=== PATIENT | male | born 1950 | race Caucasian/White ===

== ENCOUNTER → 2024-01-27 06:48 | Outpatient (REF) | payer MEDICARE, OTHER, SELFPAY ==
[2024-01-27 07:41] LABS: % Eosinophils 2.5 % (0-6); % Immature Granulocytes 0.3 % (0-0.5); % Lymphocytes 32.3 % (20.5-51.1); % Monocytes 10.5 % (1.7-9.3); % Neutrophils 53.4 % (42.2-75.2); Absolute Basophils 0.1 10^3/uL (0-0.2); Absolute Eosinophils 0.2 10^3/uL (0-0.7); Absolute Lymphocytes 2.2 10^3/uL (1.2-3.4); Absolute Monocytes 0.7 10^3/uL (0.1-0.6); Absolute Neutrophils 3.7 10^3/uL (1.4-6.5); Hematocrit 44.5 % (39.0-52.0); Hemoglobin 15.1 g/dL (13.0-18.0); Mean Corp Hgb Conc. 33.9 g/dL (33.0-37.0); Mean Corpuscular Hgb 31.1 pg (27.0-31.0); Mean Corpuscular Volume 91.6 fL (80.0-94.0); Mean Platelet Volume 9.9 fL (7.4-10.4); Nucleated Red Blood Cells % 0 % (-); Platelet Count 252 10^3/uL (130-400); Red Blood Cell Count 4.86 10^6/uL (4.70-6.10); Red Cell Dist. Width 11.9 % (11.5-14.5); White Blood Cell Count 6.9 10^3/uL (4.8-10.8)
[2024-01-27 10:40] LABS: ALT (SGPT) 28 U/L (0-50); AST (SGOT) 27 U/L (17-59); Albumin 4.2 g/dl (3.5-5.0); Alkaline Phosphatase 67 U/L (38-126); Blood Urea Nitrogen 30 mg/dl (9-20); Calcium 9.1 mg/dl (8.4-10.2); Carbon Dioxide 26 mmol/L (22-30); Chloride 105 mmol/L (98-107); Glucose 100 mg/dl (70-99); HDL Cholesterol 51 mg/dl; LDL Cholesterol, Calculated 109 mg/dl; Potassium 4.4 mmol/L (3.5-5.1); Sodium 138 mmol/L (135-145); Total Bilirubin 0.8 mg/dl (0.2-1.3); Total Cholesterol 182 mg/dl (50-199); Total Protein 6.7 g/dl (6.3-8.2); Triglyceride 114 mg/dl (10-149); Very Low Density Lipoprotein 22 mg/dl (0-30); eGFR > 60.00
[2024-01-27 10:52] LABS: PSA, Total - Screen 3.36 ng/ml (0.0-4.0)
== END ==
LOC: REG 06:48
PROVIDERS: ATTENDING PHYSICIAN Nurse Practitioner Adult Health
DX: Z00.00 Encounter for general adult medical examination without abnormal findings (principal); E78.5 Hyperlipidemia, unspecified; Z12.5 Encounter for screening for malignant neoplasm of prostate
CPT/HCPCS: 36415; 80053; 80061; 85025; G0103

== ENCOUNTER → 2024-04-28 07:52 | Outpatient (REF) | payer MEDICARE, OTHER, SELFPAY ==
[2024-04-28 08:58] LABS: % Basophils 0.8 % (0-2); % Eosinophils 2.8 % (0-6); % Immature Granulocytes 0.3 % (0-0.5); % Lymphocytes 25.4 % (20.5-51.1); % Monocytes 11.5 % (1.7-9.3); % Neutrophils 59.2 % (42.2-75.2); Absolute Basophils 0.1 10^3/uL (0-0.2); Absolute Eosinophils 0.2 10^3/uL (0-0.7); Absolute Lymphocytes 1.6 10^3/uL (1.2-3.4); Absolute Monocytes 0.7 10^3/uL (0.1-0.6); Absolute Neutrophils 3.8 10^3/uL (1.4-6.5); Hematocrit 43.6 % (39.0-52.0); Hemoglobin 14.5 g/dL (13.0-18.0); Mean Corp Hgb Conc. 33.3 g/dL (33.0-37.0); Mean Corpuscular Hgb 30.5 pg (27.0-31.0); Mean Corpuscular Volume 91.8 fL (80.0-94.0); Mean Platelet Volume 9.9 fL (7.4-10.4); Nucleated Red Blood Cells % 0 % (-); Platelet Count 236 10^3/uL (130-400); Red Blood Cell Count 4.75 10^6/uL (4.70-6.10); Red Cell Dist. Width 12.2 % (11.5-14.5); White Blood Cell Count 6.4 10^3/uL (4.8-10.8)
[2024-04-28 10:40] LABS: Blood Urea Nitrogen 29 mg/dl (9-20); Calcium 9.2 mg/dl (8.4-10.2); Carbon Dioxide 27 mmol/L (22-30); Chloride 104 mmol/L (98-107); Glucose 105 mg/dl (70-99); Potassium 4.5 mmol/L (3.5-5.1); Sodium 139 mmol/L (135-145); eGFR > 60.00
== END ==
LOC: REG 07:52
PROVIDERS: ATTENDING PHYSICIAN Specialist; FAMILY PHYSICIAN Nurse Practitioner Adult Health
DX: Z01.818 Encounter for other preprocedural examination (principal)
CPT/HCPCS: 36415; 80048; 85025

== ENCOUNTER → 2025-02-06 07:28 | Outpatient (REF) | payer MEDICARE, OTHER, SELFPAY ==
[2025-02-06 07:57] LABS: % Basophils 0.9 % (0-2); % Eosinophils 2.9 % (0-6); % Immature Granulocytes 0.2 % (0-0.5); % Lymphocytes 32.5 % (20.5-51.1); % Monocytes 9.3 % (1.7-9.3); % Neutrophils 54.2 % (42.2-75.2); Absolute Basophils 0.1 10^3/uL (0-0.2); Absolute Eosinophils 0.2 10^3/uL (0-0.7); Absolute Lymphocytes 1.8 10^3/uL (1.2-3.4); Absolute Monocytes 0.5 10^3/uL (0.1-0.6); Hemoglobin 14.9 g/dL (13.0-18.0); Mean Corp Hgb Conc. 33.9 g/dL (33.0-37.0); Mean Corpuscular Hgb 30.6 pg (27.0-31.0); Mean Corpuscular Volume 90.3 fL (80.0-94.0); Mean Platelet Volume 9.5 fL (7.4-10.4); Nucleated Red Blood Cells % 0 % (-); Platelet Count 225 10^3/uL (130-400); Red Blood Cell Count 4.87 10^6/uL (4.70-6.10); Red Cell Dist. Width 12.5 % (11.5-14.5); White Blood Cell Count 5.5 10^3/uL (4.8-10.8)
[2025-02-06 08:24] LABS: ALT (SGPT) 30 U/L (0-50); AST (SGOT) 24 U/L (17-59); Albumin 4.1 g/dl (3.5-5.0); Alkaline Phosphatase 63 U/L (38-126); Blood Urea Nitrogen 28 mg/dl (9-20); Calcium 9.5 mg/dl (8.4-10.2); Carbon Dioxide 28 mmol/L (22-30); Chloride 105 mmol/L (98-107); Glucose 113 mg/dl (70-99); HDL Cholesterol 52 mg/dl; LDL Cholesterol, Calculated 133 mg/dl; Potassium 4.4 mmol/L (3.5-5.1); Sodium 139 mmol/L (135-145); Total Bilirubin 0.7 mg/dl (0.2-1.3); Total Cholesterol 206 mg/dl (50-199); Total Protein 6.5 g/dl (6.3-8.2); Triglyceride 107 mg/dl (10-149); Very Low Density Lipoprotein 21 mg/dl (0-30); eGFR > 60.00
[2025-02-07 15:07] LABS: PSA Total 2.9 ng/mL (0.0-4.0)
== END ==
LOC: REG 07:28
PROVIDERS: ATTENDING PHYSICIAN Nurse Practitioner Adult Health
DX: Z00.00 Encounter for general adult medical examination without abnormal findings (principal); E78.5 Hyperlipidemia, unspecified; R73.9 Hyperglycemia, unspecified; Z68.29 Body mass index [BMI] 29.0-29.9, adult; Z12.5 Encounter for screening for malignant neoplasm of prostate; R26.2 Difficulty in walking, not elsewhere classified
CPT/HCPCS: 36415; 80053; 80061; 84153; 84154; 85025

== ENCOUNTER → 2025-08-16 08:10 | Outpatient (REF) | payer MEDICARE, OTHER, SELFPAY ==
[2025-08-16 09:40] LABS: ALT (SGPT) 25 U/L (0-50); AST (SGOT) 23 U/L (17-59); Albumin 4.4 g/dl (3.5-5.0); Alkaline Phosphatase 66 U/L (38-126); Blood Urea Nitrogen 25 mg/dl (9-20); Calcium 9.7 mg/dl (8.4-10.2); Carbon Dioxide 28 mmol/L (22-30); Chloride 103 mmol/L (98-107); Glucose 102 mg/dl (70-99); HDL Cholesterol 50 mg/dl; LDL Cholesterol, Calculated 120 mg/dl; Potassium 4.9 mmol/L (3.5-5.1); Sodium 137 mmol/L (135-145); Total Protein 6.8 g/dl (6.3-8.2); Very Low Density Lipoprotein 18 mg/dl (0-30); eGFR > 60.00
[2025-08-16 10:09] LABS: Glycohemoglobin (HgbA1c) 6.1 % (4.0-5.6)
== END ==
LOC: REG 08:10
PROVIDERS: ATTENDING PHYSICIAN Nurse Practitioner Adult Health
DX: R73.01 Impaired fasting glucose (principal); E78.00 Pure hypercholesterolemia, unspecified
CPT/HCPCS: 36415; 80053; 80061; 83036

== ENCOUNTER → 2025-10-24 07:51 | Outpatient (REF) | payer MEDICARE, OTHER, SELFPAY ==
[2025-10-24 08:41] LABS: Hematocrit 46.4 % (39.0-52.0); Hemoglobin 14.8 g/dL (13.0-18.0); Mean Corp Hgb Conc. 31.9 g/dL (33.0-37.0); Mean Corpuscular Volume 92.1 fL (80.0-94.0); Nucleated Red Blood Cells % 0 % (-); Platelet Count 228 10^3/uL (130-400); Red Cell Dist. Width 12.4 % (11.5-14.5)
[2025-10-24 09:02] LABS: Blood Urea Nitrogen 25 mg/dl (9-20); Calcium 9.2 mg/dl (8.4-10.2); Carbon Dioxide 31 mmol/L (22-30); Chloride 103 mmol/L (98-107); Glucose 106 mg/dl (70-99); Potassium 4.4 mmol/L (3.5-5.1); Sodium 137 mmol/L (135-145); eGFR > 60.00
== END ==
LOC: REG 07:51
PROVIDERS: ATTENDING PHYSICIAN Specialist; FAMILY PHYSICIAN Nurse Practitioner Adult Health
DX: Z01.818 Encounter for other preprocedural examination (principal)
CPT/HCPCS: 36415; 80048; 85025

== ENCOUNTER 2025-11-18 16:33 | Emergency (ER) | payer MEDICARE, OTHER, SELFPAY ==
[2025-11-18 16:38] VITALS: BP 134/95
--- NOTE | 2025-11-18 18:20 | ED.GENMED ---
History of Present Illness
<Sharon Maguire PA-C - Last Filed: 11/21/25 15:58>
General
Chief Complaint: Bowel Problem
Source: patient and spouse
Exam Limitations: none
Time Seen by Provider: 11/18/25 17:42
History of Present Illness
History of Present Illness:
74yoM with a history of a recent right hip replacement on 11/14/[address] Santos presenting with his for evaluation of constipation. Patient has not had a bowel movement in 5 days. He has tried laxative including milk of magnesia, prune
juice, and an enema without any relief. He reports generalized abdominal pain and distention. He has not passed any flatus so far today. He is not eating much and feels very dehydrated. He has some nausea but denies any vomiting. He also
endorses decreased urine output. He has not taken any opioids since the day of surgery. Only prior abdominal surgery was an appendectomy.
Past History
<Sharon Maguire PA-C - Last Filed: 11/21/25 15:58>
Social History
Tobacco: Non-smoker
Employment: Employed
Phy Exam
<Sharon Maguire PA-C - Last Filed: 11/21/25 15:58>
General Physical Exam
General Presentation: no apparent distress
General Skin: warm and dry
General Habitus: normal and elderly
General Mental: alert
ENT Exam
ENT Exam: normocephalic
Pulmonary Exam
Pulmonary Exam: no respiratory distress
Gastrointestinal Exam
Gastrointestinal Exam: soft, distended and other (Abdomen distended with generalized tenderness. No rebound or guarding.)
Neurological Exam
Neurological Exam: alert
Mini Coma Scale
Eye Opening: Spontaneous
Verbal Response: Oriented
Motor Response: Obeys Commands
GCS Total Score: 15
Musculoskeletal Exam
Musculoskeletal Exam: other (R hip postoperative wound dressing in place)
Skin Exam
Skin Exam: normal color and warm/dry
Psychiatric Exam
Psychiatric Exam: normal mood/affect
<James Hatfield Jr., PA-C - Last Filed: 11/19/25 22:06>
Mini Coma Scale
GCS Total Score: 15
Course
<Sharon Maguire PA-C - Last Filed: 11/21/25 15:58>
Orders/Labs/Results
Orders:
Orders
11/18/25 18:19
CT Abd/pelvis W Iv Cont Urgent
Comment:
Reason For Exam: constipation, abd distention
11/18/25 18:21
Bladder Scan- Treatment ONCE
0.9% Sodium Chloride 1000 ml [Nss] 1,000 ml IV BOLUS
11/18/25 18:50
HYDROmorphone [Dilaudid] 0.5 mg IV NOW STA
11/18/25 18:51
Complete Blood Count/With Diff Urgent
Comprehensive Metabolic Panel Urgent
Lipase Urgent
11/18/25 19:14
Terrazas Placement- Treatment ONCE
Reason for insertion: Acute Retention
11/18/25 19:45
Urinalysis Reflex To Culture Urgent
Date Specimen was Collected: 11/18/25
Time Specimen was Collected: 19:40
Urine Microscopic Reflex Cult Urgent
11/18/25 21:28
Enema- Treatment ONCE
Type: Milk of Molasses
Abnormal Lab Results
11/18/25 11/18/25
18:51 19:45
WBC 18.4 H 10^3/uL
(4.8-10.8)
RBC 4.60 L 10^6/uL
(4.70-6.10)
MCHC 32.6 L g/dL
(33.0-37.0)
Abs Immat Gran (auto) 0.2 H 10^3/uL
(0-0.05)
Absolute Neuts (auto) 14.4 H 10^3/uL
(1.4-6.5)
Absolute Monos (auto) 1.8 H 10^3/uL
(0.1-0.6)
Immature Gran % 1.3 H %
(0-0.5)
Neutrophils % 78.6 H %
(42.2-75.2)
Lymphocytes % 9.8 L %
(20.5-51.1)
Monocytes % 9.8 H %
(1.7-9.3)
BUN 42 H mg/dl
(9-20)
Glucose 122 H mg/dl
(70-99)
Lipase 302 H U/L
(23-300)
Ur Occult Blood Reflex 3+ A
(Negative)
Urine RBC 16-20 A /HPF
(0-2)
Urine Bacteria (Reflex) Few A
(Negative)
Urine Albumin (Reflex) 1+ A
(Neg - Trace)
11/18/25 18:51
11/18/25 18:51
Vital Signs
Initial and Last Documented VS:
Initial Vital Signs
Temp Pulse Resp BP Pulse Ox
97.0 F 89 18 134/95 94
11/18/25 16:38 11/18/25 16:38 11/18/25 16:38 11/18/25 16:38 11/18/25 16:38
Last Documented Vital Signs
Temp Pulse Resp BP Pulse Ox
98.6 F 78 16 126/82 92
11/18/25 18:32 11/18/25 22:30 11/18/25 22:30 11/18/25 20:00 11/18/25 21:15
<James Hatfield Jr., PA-C - Last Filed: 11/19/25 22:06>
Orders/Labs/Results
Orders:
Orders
11/18/25 18:19
CT Abd/pelvis W Iv Cont Urgent
Comment:
Reason For Exam: constipation, abd distention
11/18/25 18:21
Bladder Scan- Treatment ONCE
0.9% Sodium Chloride 1000 ml [Nss] 1,000 ml IV BOLUS
11/18/25 18:50
HYDROmorphone [Dilaudid] 0.5 mg IV NOW STA
11/18/25 18:51
Complete Blood Count/With Diff Urgent
Comprehensive Metabolic Panel Urgent
Lipase Urgent
11/18/25 19:14
Terrazas Placement- Treatment ONCE
Reason for insertion: Acute Retention
11/18/25 19:45
Urinalysis Reflex To Culture Urgent
Date Specimen was Collected: 11/18/25
Time Specimen was Collected: 19:40
Urine Microscopic Reflex Cult Urgent
11/18/25 21:28
Enema- Treatment ONCE
Type: Milk of Molasses
Abnormal Lab Results
11/18/25 11/18/25
18:51 19:45
WBC 18.4 H 10^3/uL
(4.8-10.8)
RBC 4.60 L 10^6/uL
(4.70-6.10)
MCHC 32.6 L g/dL
(33.0-37.0)
Abs Immat Gran (auto) 0.2 H 10^3/uL
(0-0.05)
Absolute Neuts (auto) 14.4 H 10^3/uL
(1.4-6.5)
Absolute Monos (auto) 1.8 H 10^3/uL
(0.1-0.6)
Immature Gran % 1.3 H %
(0-0.5)
Neutrophils % 78.6 H %
(42.2-75.2)
Lymphocytes % 9.8 L %
(20.5-51.1)
Monocytes % 9.8 H %
(1.7-9.3)
BUN 42 H mg/dl
(9-20)
Glucose 122 H mg/dl
(70-99)
Lipase 302 H U/L
(23-300)
Ur Occult Blood Reflex 3+ A
(Negative)
Urine RBC 16-20 A /HPF
(0-2)
Urine Bacteria (Reflex) Few A
(Negative)
Urine Albumin (Reflex) 1+ A
(Neg - Trace)
11/18/25 18:51
11/18/25 18:51
Vital Signs
Initial and Last Documented VS:
Initial Vital Signs
Temp Pulse Resp BP Pulse Ox
97.0 F 89 18 134/95 94
11/18/25 16:38 11/18/25 16:38 11/18/25 16:38 11/18/25 16:38 11/18/25 16:38
Last Documented Vital Signs
Temp Pulse Resp BP Pulse Ox
98.6 F 78 16 126/82 92
11/18/25 18:32 11/18/25 22:30 11/18/25 22:30 11/18/25 20:00 11/18/25 21:15
Joselt;Sharon Maguire PA-C - Last Filed: 11/21/25 15:58>
MDM/Problems Addressed
Differential Diagnosis Includes:
74yoM here with constipation and abd pain. Had R hip replacement 4 days ago. No BM in 5 days. VSS. Patient non-toxic appearing. Abdomen appears distended without signs of peritonitis. Differential diagnosis includes: fecal impaction, constipation,
SBO
Initial ED plan: Check abdominal labs, bladder scan, and CT abdomen. IV Dilaudid for pain.
Final assessment: Bladder scan 508 and Terrazas catheter placed by nursing staff. Labs reveal leukocytosis with WBC of 18 which is nonspecific and may be related to recent surgery. Preliminary [facility] report shows findings that may represent
constipation. Cecum dilated to 9cm. Mild wall thickening of proximal sigmoid colon which could represent mild colitis. D/w Dr. Giang. Will order milk of molasses enema. Case signed out to Maurilio Hatfield PA-C pending enema results.
<Sharon Maguire PA-C - Last Filed: 11/21/25 15:58>
*Pulse Oximetry
SaO2: 94
Oxygen Mode of Delivery: Room air
<James Hatfield Jr., PA-C - Last Filed: 11/19/25 22:06>
*Pulse Oximetry
Patient hypoxic: no (98)
*Critical Care Note
Total Time (30-74mins, 75-104mins- exclusive of procedures): Not Applicable
<James Hatfield Jr., PA-C - Last Filed: 11/19/25 22:06>
Update Note
Update Note:
Patient was reassessed after receiving an enema. Has significant bowel movement and feels much better at this point. Significant improvement of distention. He otherwise will be discharged with Terrazas catheter in place and recommended for urology
follow-up. Recommended for ongoing MiraLAX use. Return precautions given.
ED Attending Note
<Sharon Maguire PA-C - Last Filed: 11/21/25 15:58>
-
Portions of this chart may have been created with voice recognition software.� Occasional wrong word or��sound alike� substitutions may have occurred due to the inherent limitations of voice recognition software.
Discharge Plan
Departure
Patient Disposition: Home (Routine Discharge)
Date of Disposition: 11/18/25
Time of Disposition: 23:50
Patient with high blood pressure during this ER visit?: No
Condition: Good
Covid-19: Not Applicable
Discharge Problem:
Acute urinary retention, Constipation
Instructions: How to Care for Your Terrazas Catheter, Male
Prescriptions:
No Action
aspirin 325 mg Tablet
325 mg PO DAILY
acetaminophen 500 mg Tablet
1,000 mg PO Q6H PRN (Reason: pain)
dexamethasone 4 mg Tablet
4 mg PO BID
mupirocin 2 % Ointment
1 applic TOPICAL BID
celecoxib 100 mg Capsule
100 mg PO BID
Referrals:
Marvin Hamlin CRNP [Family Provider, Internal Medicine]
Elvin Dye MD [Active, Urology] - Follow up in 5-7 days
Activity Restrictions/Additional Instructions:
You came to the emergency department today with concerns of abdominal symptoms. Here you are found to be constipated with improvement after enema. Additionally you had urinary retention. A Terrazas catheter was placed. Please follow-up with urology
in the 1 to 2 weeks for reassessment of this. Return for any worsening, new or concerning symptoms.
Interventions
Interventions:
*General Assessment Last Done: 11/18/25 16:38
*Neglect/Abuse Screening Last Done: 11/18/25 16:38
*ED COVID-19 Vaccine History Last Done: 11/18/25 18:32
*ED Influenza Vaccine History Last Done: 11/18/25 18:32
[facility] Risk Assessment Tool Last Done: 11/18/25 18:32
*Risk Screen - Suicide (C-SSRS) Last Done: 11/18/25 16:42
*Nursing Disposition Last Done: 11/19/25 00:42
GN-Jczvlo-Nzkxukkyqv Assessment Last Done: 11/18/25 18:32
Discharge Date and Time
Discharge Date/Time: 11/19/25 00:43
Print Language: MALTESE
[2025-11-18 18:32] VITALS: BP 134/92; BMI 31.5
[2025-11-18 19:00] VITALS: BP 132/87
[2025-11-18 19:05] LABS: Hematocrit 42.7 % (39.0-52.0); Hemoglobin 13.9 g/dL (13.0-18.0); Mean Corp Hgb Conc. 32.6 g/dL (33.0-37.0); Mean Corpuscular Volume 92.8 fL (80.0-94.0); Nucleated Red Blood Cells % 0.1 % (-); Platelet Count 332 10^3/uL (130-400); Red Cell Dist. Width 12.8 % (11.5-14.5)
[2025-11-18] MEDS: NSS 1000 IV (19:07)
[2025-11-18] MEDS: DILAUDID 0.5 MG IV (19:07)
[2025-11-18 19:25] LABS: ALT (SGPT) 31 U/L (0-50); AST (SGOT) 31 U/L (17-59); Albumin 4.0 g/dl (3.5-5.0); Alkaline Phosphatase 67 U/L (38-126); Blood Urea Nitrogen 42 mg/dl (9-20); Calcium 9.0 mg/dl (8.4-10.2); Carbon Dioxide 30 mmol/L (22-30); Chloride 100 mmol/L (98-107); Estimated Creatinine Clearance 91 ml/min; Glucose 122 mg/dl (70-99); Lipase 302 U/L (23-300); Potassium 4.6 mmol/L (3.5-5.1); Sodium 136 mmol/L (135-145); Total Protein 6.4 g/dl (6.3-8.2); eGFR > 60.00
[2025-11-18 19:56] LABS: Urine Character Clear (Clear)
[2025-11-18 20:00] VITALS: BP 126/82
[2025-11-18 20:04] LABS: Urine Red Blood Cell 16-20 /HPF (0-2); Urine Squamous Cell 0-2 /LPF (Few); Urine White Cell 0-2 /HPF (0-5)
== END 2025-11-19 00:43 | disposition home or self-care (01) ==
LOC: EMR 16:33
PROVIDERS: Physician Assistant; EMERGENCY PHYSICIAN Emergency Medicine; FAMILY PHYSICIAN Nurse Practitioner Adult Health
DX: R33.9 Retention of urine, unspecified (principal); K59.00 Constipation, unspecified; D72.829 Elevated white blood cell count, unspecified; Z96.641 Presence of right artificial hip joint
CPT/HCPCS: 99284; 96374; 96361; 51702; 74177; 80053; 81003; 81015; 83690; 85025; Q9967